=== PATIENT | female | born 1945 | race Caucasian/White ===

== ENCOUNTER 2017-11-22 05:40 | Day surgery (SDC) | payer OTHER ==
[~2017-11-22 05:40] MED LIST: AMLODIPINE BESYL5 MG; ASPIR 8181 MG; ATORVASTATIN CA40 MG; CIPRO500 MG PO; COLACE100 MG PO; FLAGYL500MG PO; GABAPENTIN100 MG; GLIMEPIRIDE4 MG; HUMULIN N100 U/ML SQ; METOPROLOL SUC200 MG; NIFEDICAL30 MG/BOTT; PERCOCET 5/3251 TAB PO; TIROSINT100 MCG; VALSARTAN-HCTZ1 EAC3; VALSARTAN-HCTZ1 EAC4; ZANAFLEX2 MG
== END 2017-11-22 10:35 | disposition home or self-care (01) ==
LOC: AMB-ENDOS 05:40
DX: K60.3 Anal fistula (principal); K62.89 Other specified diseases of anus and rectum